=== PATIENT | male | born 1995 | race Caucasian/White ===

== ENCOUNTER 2020-07-26 14:15 | Emergency (ER) | payer OTHER ==
[~2020-07-26] VITALS: Ht 167.6 cm; Wt 64.3 kg
[2020-07-26 14:16] VITALS: BP 139/71
[2020-07-26] MEDS ORDERED: hormone replacement (14:23)
== END 2020-07-26 15:01 | disposition home or self-care (01) ==
LOC: M ED 14:15
DX: J06.9 Acute upper respiratory infection, unspecified (principal); F17.210 Nicotine dependence, cigarettes, uncomplicated
CPT/HCPCS: 99282; U0003

== ENCOUNTER → 2021-10-19 | Outpatient (CLI) | payer OTHER ==
[~2021-10-19] MED LIST: ESTR20IN; GABA-1171; PROG1CAP8; SERT50TA29; SPIR100T3; ZOLP10TA2; hormone replacement
== END ==
LOC: M LABSMTC 10:57
PROVIDERS: ATTEND Anesthesiology
DX: Z01.812 Encounter for preprocedural laboratory examination (principal); Z11.52 Encounter for screening for COVID-19

== ENCOUNTER 2021-10-24 06:17 | Observation (INO) | payer OTHER ==
[~2021-10-24] VITALS: Ht 167.6 cm; Wt 63.9 kg
[~2021-10-24 06:17] MED LIST changes: +LR 1,000 ML IV ONE; +ceFAZolin SOD 2 GM in IV 1 EA IV ONE
[2021-10-24] MEDS ORDERED: BUPIVACAINE LIPOSOME/PF 1.3% 20ML VIAL (13.3MG/ML)(EXPAREL)(C9290 PER1MG) As Ordered ONE (07:07)
[2021-10-24] MEDS ORDERED: GENTAMICIN SULF 80MG/2ML VIAL As Ordered ONE ×2 (07:07→09:42)
[2021-10-24] MEDS ORDERED: LIDOCAINE 2% 100MG/5ML SDV (FOR ANES.) As Ordered ONE (07:26)
[2021-10-24] MEDS ORDERED: MIDAZOLAM INJ 2MG/2ML VIAL (J2250 PER 1MG) As Ordered ONE (07:26)
[2021-10-24] MEDS ORDERED: dexameTHASONE 4 MG/ML 1ML VIAL (J1100 PER 1MG) As Ordered ONE (07:26)
[2021-10-24] MEDS ORDERED: ROCURONIUM BROMIDE 50 MG/5 ML VIAL As Ordered ONE ×2 (07:26→08:29)
[2021-10-24] MEDS ORDERED: propofoL 200 MG/20 ML VIAL As Ordered ONE (07:26)
[2021-10-24] MEDS ORDERED: fentaNYL 250 MCG/5 ML INJECTION (J3010) As Ordered ONE (07:26)
[2021-10-24] MEDS ORDERED: ePHEDrine SULFATE 25 MG/5 ML(5MG/ML) SYRINGE As Ordered ONE (08:19)
[2021-10-24] MEDS ORDERED: ACETAMINOPHEN 1000MG 100ML IV BTL (OFIRMEV) (J0131 PER 10MG) As Ordered ONE (08:36)
[2021-10-24] MEDS ORDERED: METOCLOPRAMIDE INJ 10MG/2ML VIAL (J2765 PER 1) As Ordered ONE (08:36)
[2021-10-24] MEDS ORDERED: SUGAMMADEX SODIUM 500 MG/5 ML VIAL (BRIDION) As Ordered ONE (08:36)
[2021-10-24] MEDS ORDERED: HYDROmorphone HCL 2MG/ML 1ML VIAL As Ordered ONE (08:36)
[2021-10-24] MEDS ORDERED: LACRILUBE (AKWA TEARS) OPHTH OINT 3.5 GM As Ordered ONE (08:38)
[2021-10-24] MEDS ORDERED: PHENYLephrine 500MCG 5ML (100MCG/ML) SYRINGE As Ordered ONE (09:10)
[2021-10-24] MEDS ORDERED: SEVOFLURANE INHAL SOLN 250 ML BTL As Ordered ONE (09:53)
[2021-10-24] MEDS ORDERED: ONDANSETRON 4MG/2ML VIAL IV PRN ×2 (10:40→11:05)
[2021-10-24] MEDS ORDERED: ACETAMINOPHEN TAB 650MG DOSE (2X325MG) PO PRN (10:40)
[2021-10-24] MEDS ORDERED: LR 1,000 ML IV SCH (11:05)
[2021-10-24] MEDS ORDERED: HYDROMORPHONE HCL 0.5 MG/ 0.5 ML SYRINGE (J1170 PER 1) IV PRN (11:05)
[2021-10-24] MEDS ORDERED: fentaNYL 100 MCG/2 ML INJECTION (J3010) IV PRN (11:05)
[2021-10-24] MEDS: oxyCODONE 5MG TAB PO PRN ×2 (11:30→14:07)
[2021-10-24] MEDS: LR 1,000 ML IV SCH ×2 (14:07→23:56)
[2021-10-24 15:00] VITALS: BP 129/63
[2021-10-24 15:30] VITALS: BP 121/63
[2021-10-24] MEDS: ceFAZolin SOD 1 GM in D5W MINI-BAG PLUS 50 ML IV SCH ×2 (15:54→23:48)
[2021-10-24 16:30] VITALS: BP 117/63
[2021-10-24] MEDS: PERCOCET 5MG/325MG TAB PO PRN ×2 (16:31→20:39)
[2021-10-24 17:30] VITALS: BP 105/60
[2021-10-24 18:30] VITALS: BP 105/61
[2021-10-24 22:00] VITALS: BP 107/50
[2021-10-25 02:00] VITALS: BP 106/51
[2021-10-25] MEDS ORDERED: RAMELTEON 8 MG TAB (ROZEREM) PO PRN (02:10)
[2021-10-25] MEDS: PERCOCET 5MG/325MG TAB PO PRN ×3 (02:21→11:55)
[2021-10-25] MEDS ORDERED: hydrOXYzine 50 MG TAB PO ONE (03:00)
[2021-10-25 06:00] VITALS: BP 104/66
[2021-10-25] MEDS: ceFAZolin SOD 1 GM in D5W MINI-BAG PLUS 50 ML IV SCH (07:59)
[2021-10-25 10:00] VITALS: BP 108/56
[2021-10-25] MEDS ORDERED: TRAM50TA2 PO ×2 (10:11→11:12)
== END 2021-10-25 11:55 | disposition home or self-care (01) ==
LOC: M SDC 06:17 → M MS5PR 06:18
PROVIDERS: ADMIT Plastic Surgery Surgery of the Hand; ATTEND Plastic Surgery Surgery of the Hand
DX: N64.82 Hypoplasia of breast (principal); F64.9 Gender identity disorder, unspecified; F32.9 Major depressive disorder, single episode, unspecified; F41.9 Anxiety disorder, unspecified; E05.90 Thyrotoxicosis, unspecified without thyrotoxic crisis or storm; K21.9 Gastro-esophageal reflux disease without esophagitis; F84.5 Asperger's syndrome; F43.10 Post-traumatic stress disorder, unspecified; F90.9 Attention-deficit hyperactivity disorder, unspecified type; F25.9 Schizoaffective disorder, unspecified; F91.3 Oppositional defiant disorder; J45.909 Unspecified asthma, uncomplicated; R06.83 Snoring; Z79.899 Other long term (current) drug therapy; Z79.890 Hormone replacement therapy; F17.290 Nicotine dependence, other tobacco product, uncomplicated; Z81.8 Family history of other mental and behavioral disorders
CPT/HCPCS: 19325; 96374; 96376; C9290; J0131; J0690; J1100; J1170; J1580; J2250; J2370; J2765; J3010; L8600